=== PATIENT | female | born 1990 | race Hispanic/Latino ===

== ENCOUNTER 2020-03-26 18:20 | Emergency (ER) | payer OTHER, SELFPAY ==
[2020-03-27 11:54] LABS: SARS-CoV-2 MS2 Positive; SARS-CoV-2 N Gene Negative; SARS-CoV-2 S Gene Negative; SARS-CoV-2 by NAA Not Detected (NotDetected); SARS-CoV-2 orf1ab Negative
== END 2020-03-26 18:45 | disposition home or self-care (01) ==
LOC: ERS 18:20
DX: R05 Cough (principal); Z20.828 Contact with and (suspected) exposure to other viral communicable diseases
CPT/HCPCS: 87635; 99283; U0003

== ENCOUNTER 2025-08-17 23:52 | Emergency (ER) | payer OTHER, SELFPAY ==
[2025-08-18 00:14] LABS: Bacteria/HPF None Seen HPF (None Seen); CAUTI Indications for Culture Dysuria,urgency,freq; Glucose, Urine (Dipstick) Greater than 1000 mg/dL (Negative); Leukocyte 250 Leu/uL (Negative); Protein, Urine (Dipstick) Negative (Neg-Trace); RBC/HPF 0-3 HPF (0-3); Specific Gravity, Urine 1.026 (1.002-1.036); WBC/HPF 0-3 HPF (0-3)
[2025-08-18 00:15] LABS: Urine Culture Reflex No No
[2025-08-18 00:32] LABS: Pregnancy Test - Urine (BHCG) POSITIVE (Negative); Pregu Control Background? CLEAR/WHITE (CLR/WHITE); Pregu Control Bar Appear? YES (CONTROL BAR)
[2025-08-18 03:11] LABS: #Basophils Less than 0.03 10x3/uL (0.0-0.2); #Eosinophils 0.12 10x3/uL (0.0-0.7); #Monocytes 0.48 10x3/uL (0.11-0.59); #Neutrophils 4.00 10x3/uL (1.40-6.50); %Basophils 0.3 % (0.0-1.0); %Eosinophils 1.8 % (0.0-10.0); %Lymphocytes 29.7 % (21.0-51.0); %Monocytes 7.3 % (0.0-10.0); %Neutrophils 60.6 % (42.0-75.0); Hematocrit 33.3 % (36.0-47.0); Hemoglobin 10.9 g/dL (12.0-16.0); Mean Corpuscular Hemoglobin 25.8 pg (27.0-31.0); Mean Corpuscular Volume 78.7 fL (78.0-98.0); Platelet Count 237 10x3/uL (130-400); Red Blood Cell (RBC) Count 4.23 mill/uL (4.20-5.40); White Blood Cell (WBC) Count 6.60 10x3/uL (4.8-10.8)
[2025-08-18 03:25] LABS: ALT (SGPT) 15 U/L (Less than 34); AST (SGOT) 18 U/L (11-34); Albumin 3.7 g/dL (3.1-4.5); Alkaline Phosphatase 171 U/L (40-110); Anion Gap 16 mmol/L (10-20); BUN (Urea Nitrogen) 6 mg/dL (7.0-18.7); Bilirubin, Total 0.3 mg/dL (0.3-1.2); Calc. Creatinine Clearance 0 mL/min (70-130); Calcium 8.9 mg/dL (7.8-10.44); Carbon Dioxide 18 mmol/L (22-29); Chloride 102 mmol/L (98-107); Globulin 3.4 g/dL (2.4-3.5); Glucose 199 mg/dL (70-105); Potassium 3.4 mmol/L (3.5-5.1); Sodium 133 mmol/L (136-145)
[2025-08-18 07:35] LABS: Chlamydia by PCR, Vaginal Swab Not Detected (NotDetected); GC by PCR, Vaginal Swab Not Detected (NotDetected)
== END 2025-08-18 05:00 | disposition home or self-care (01) ==
LOC: ERS 23:52
DX: O98.511 Other viral diseases complicating pregnancy, first trimester (principal); J10.1 Influenza due to other identified influenza virus with other respiratory manifestations; O23.41 Unspecified infection of urinary tract in pregnancy, first trimester; N39.0 Urinary tract infection, site not specified; Z55.9 Problems related to education and literacy, unspecified; Z3A.01 Less than 8 weeks gestation of pregnancy
CPT/HCPCS: 76856; 80053; 81001; 81025; 84702; 85025; 87081; 87428; 87430; 87480; 87491; 87510; 87591; 87660